=== PATIENT | female | born 1960 | race Caucasian/White ===

== ENCOUNTER 2018-04-01 19:15 | Emergency (ER) | payer OTHER ==
[2018-04-01 19:41] VITALS: BP 95/60
--- NOTE | 2018-04-01 20:28 | UC ---
Lower Extremity/Ankle HPI - HPI Summary HPI Summary: Patient is a 57-year-old female presenting to the with left knee pain 3 days. She denies any known injury. She states she is unable to flex fully, however denies any ecchymosis or swelling. Pain is worse with ambulation, better with rest, however still present. She states she feels as though the knee is pulling it is very tight. Endorses radiation of pain down the left lateral side of the lower leg. Pain is located both medially and laterally. - History of Current Complaint Hx Obtained From: Patient Hx Last Menstrual Period: 1995 ?: No Onset/Duration: Sudden Onset Severity Initially: Moderate Severity Currently: Moderate Pain Intensity: 6 Pain Scale Used: 0-10 Numeric Aggravating Factor(s): Standing, Ambulation Alleviating Factor(s): Rest, Elevation Able to Bear Weight: Yes - Risk Factors Gout Risk Factors: Age Over 40 DVT Risk Factors: Negative Septic Arthritis Risk Factor: Negative <Britta Lomeli - Last Filed: 04/01/18 21:18> <Carmen Franco - Last Filed: 04/01/18 21:23> - History of Current Complaint Chief Complaint: UCLowerExtremity Stated Complaint: KNEE PAIN Time Seen by Provider: 04/01/18 20:02 - Allergies/Home Medications Allergies/Adverse Reactions: Allergies Allergy/AdvReac Type Severity Reaction Status Date / Time No Known Allergies Allergy Verified 04/01/18 19:41 PMH/Surg Hx/FS Hx/Imm Hx Previously Healthy: Yes Other History Of: Negative For: HIV, Hepatitis B, Hepatitis C, Anticoagulant Therapy - Surgical History Surgical History: Yes Surgery Procedure, Year, and Place: appendectomy 1995. laproscopic uterine sx 2010 - Family History Known Family History: Positive: Cardiac Disease, Hypertension, Diabetes, Renal Disease - Social History Occupation: Employed Full-time Lives: With Family Alcohol Use: None Substance Use Type: None Smoking Status (MU): Light Every Day Tobacco Smoker - Immunization History Most Recent Influenza Vaccination: doesn't get <Britta Lomeli - Last Filed: 04/01/18 21:18> Review of Systems Constitutional: Negative Respiratory: Negative Cardiovascular: Negative Motor: Decreased ROM Neurovascular: Negative Musculoskeletal: Arthralgia - left knee pain Neurological: Negative Psychological: Negative Is Patient Immunocompromised?: No All Other Systems Reviewed And Are Negative: Yes <Britta Lomeli - Last Filed: 04/01/18 21:18> Physical Exam Triage Information Reviewed: Yes Appearance: Well-Appearing, No Pain Distress, Well-Nourished Vital Signs: Initial Vital Signs Temp 98.5 F 04/01/18 19:33 Pulse 64 04/01/18 19:33 Resp 16 04/01/18 19:33 BP 95/60 04/01/18 19:33 Pulse Ox 98 04/01/18 19:33 Neck exam: Normal Neck: Positive: Supple, No Lymphadenopathy Respiratory Exam: Normal Respiratory: Positive: Chest non-tender, Lungs clear Cardiovascular Exam: Normal Cardiovascular: Positive: RRR Musculoskeletal: Positive: ROM Limited @ - flexin of the knee Neurological: Positive: Alert Psychological Exam: Normal Psychological: Positive: Normal Response To Family Skin Exam: Normal <Britta Lomeli - Last Filed: 04/01/18 21:18> Vital Signs: Initial Vital Signs Temp 98.5 F 04/01/18 19:33 Pulse 64 04/01/18 19:33 Resp 16 04/01/18 19:33 BP 95/60 04/01/18 19:33 Pulse Ox 98 04/01/18 19:33 <Carmen Franco - Last Filed: 04/01/18 21:23> Lower Extremity Course/Dx - Course Course Of Treatment: During the course of treatment, the patient's evaluated for left-sided knee pain. I discussed with the patient obtaining an x-ray, however due to no injury is unlikely to show anything acute or pathological. She continues requesting an x-ray at this time. She has been taking ibuprofen without relief. Has not used ice for relief. She states she walks several miles per day for her job however has never had this issue in the past. Xray shows no acute findings. This is likely patellar tendinitis and I have given her instructions for non weight bearing as much as possible, nsaids, elevation, ice. She will follow up with ortho if symptoms persist. - Differential Dx/Diagnosis Differential Diagnosis/HQI/PQRI: Sprain, Strain, Tendonitis Provider Diagnoses: Patellar tendinitis <Britta Lomeli - Last Filed: 04/01/18 21:18> Discharge - Sign-Out/Discharge Documenting (check all that apply): Discharge/Admit/Transfer - Billing Disposition and Condition Condition: STABLE Disposition: Home <Britta Lomeli - Last Filed: 04/01/18 21:18> - Billing Disposition and Condition Condition: STABLE Disposition: Home <Carmen Franco - Last Filed: 04/01/18 21:23> - Discharge Plan Condition: Stable Disposition: HOME Patient Education Materials: Knee Pain (ED), Patellar Tendinitis (ED) Referrals: No Primary Care Phys,NOPCP [Primary Care Provider] - Betzaida Weber MD [Medical Doctor] - Additional Instructions: Please follow up with orthopedics Ibuprofen 600mg three times daily Ice Elevation keep the area compressed Stay non weight bearing as much as possible Attestation Statement User Type: Provider - I was available for consult. This patient was seen by the EDUARD. The patient was not presented to, seen by, or examined by me. -Rober <Carmen Franco - Last Filed: 04/01/18 21:23>
--- NOTE | 2018-04-01 20:54 | RAD ---
Indication: Left knee pain. 4 views of left knee demonstrates no fracture. No joint effusion identified. IMPRESSION: No fracture of the left knee.
== END 2018-04-01 21:25 | disposition home or self-care (01) ==
LOC: UCEAST 19:15
DX: M76.52 Patellar tendinitis, left knee (principal)
CPT/HCPCS: 99211; G0463

== ENCOUNTER → 2019-06-14 08:17 | Day surgery (SDC) | payer OTHER ==
--- NOTE | 2019-06-07 09:16 | HP ---
PREOPERATIVE HISTORY AND PHYSICAL: DATE OF ADMISSION/PROPOSED PROCEDURE: 06/14/19 DATE OF OFFICE VISIT: 05/30/19 ATTENDING PHYSICIAN: Dr. Festus Kerns* (dictated by TJ Marx). SURGERY SCHEDULED: Left knee arthroscopy. CHIEF COMPLAINT: Medial left knee pain. HISTORY OF PRESENT ILLNESS: The patient is a 58-year-old female who works at the home [employer] business and at night at [employer] on a [employer] crew. The patient has had complaints of knee pain since last summer. It began to bother her much more significantly earlier this month. A MRI was done last summer that showed findings consistent with a medial meniscal tear. She was found to have a medial meniscal tear due to the increased symptoms, has now elected to proceed with left knee arthroscopy with Dr. Kerns, 06/14/19. PAST MEDICAL HISTORY: Significant for: 1. Prior history of anemia. 2. COPD. PAST SURGICAL HISTORY: 1. Appendectomy. 2. Wrist surgery in 2007. MEDICATIONS: 1. Ibuprofen 400 to 600 mg every 6 hours as needed. 2. Percocet 5/325 one p.o. q.4 hours p.r.n. pain. ALLERGIES: No known drug allergies. FAMILY HISTORY: Positive for diabetes in mother and grandmother. Mother with a history of cardiac disease and hypertension. Father with a history of prostate cancer which metastasized to bone cancer. SOCIAL HISTORY: The patient lives with a friend. 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 She smokes half a pack of cigarettes per day. She denies use of alcohol. She denies use of illicit drugs. REVIEW OF SYSTEMS: The patient denies recent loss of consciousness, lightheadedness. She occasionally has shortness of breath with exertion, especially on stairs. Denies palpitations, gastrointestinal or genitourinary problems. She denies a history of DVT, phlebitis, or pulmonary embolism. PHYSICAL EXAMINATION VITAL SIGNS: Her vitals show a height of 65 inches, weight 146, BP 128/68. GENERAL: She is alert and oriented x3, in no acute distress. Pleasant and cooperative, appropriate mood and affect. HEENT: PERRLA. EOMI. NECK: Supple. LUNGS: Clear to auscultation without wheeze. HEART: Regular rate and rhythm without murmur. ABDOMEN: Flat, soft, nondistended, nontender. Normoactive bowel sounds x4 quadrants. EXTREMITIES: Lower extremities, no open lesions or excoriations. No rash. The left knee reveals tenderness to palpation along the medial joint line. Range of motion from 0 to 130 degrees. Her calf is nontender and soft. Her sensation and circulation are intact distally. IMPRESSION: Medial meniscal tear, left knee. PLAN: The patient has failed conservative management over the last year. Her symptoms have become worse over the last several weeks, and she now elects to proceed with left knee arthroscopy for probable debridement, partial medial meniscectomy with Dr. Festus Kerns, 06/14/19, at [facility]. Risks and benefits of the procedure were fully discussed with the patient by Dr. Kerns today at the office visit, 05/30/19. She elects to proceed. She will follow up in roughly 10 to 14 days postoperatively. TJ ROBLEDO [id number]/[facility] #: [id number] [facility] STATE HOSPITALScarlett
[~2019-06-14 08:17] MED LIST: Acetaminophen TAB* 325 MG PO PRN; Buffered Lidocaine 1% SYRIN* 1 ML/SYRINGE INTRADERM ONE; Bupivacaine 0.5% W/EPI SDV* 10 ML VIAL INJ ONE; Dexamethasone IV* 4 MG/ML 1 ML (4 MG) ONE; EPHEDrine (Pressors)* 50 MG/ML VIAL ONE; HYDROcodone/ACETAMIN 5-325 MG* 1 TAB ONE; HYDROcodone/ACETAMIN 5-325 MG* 1 TAB PO PRN; HYDROmorphone INJ1* 1 MG/ML SYRINGE ONE; Ketorolac INJ* 30 MG/ML 1 ML VIAL ONE; Lactated Ringers 1000 ML Bag* 1,000 ML IV SCH; Lidocaine 2% PF * 5 ML VIAL ONE; Midazolam* 1 MG/ML 2 ML VIAL (2 MG) ONE; Naloxone* 0.4 MG/ML 1 ML VIAL IV PRN; Ondansetron INJ* 2 MG/ML VIAL ONE; Propofol* 10 MG/ML 20 ML BTL ONE; ceFAZolin 2 GM in NS PREMIX(*) 2 GM/100 ML BAG IVPB ONE; fentaNYL* 50 MCG/ML 2 ML VIAL (100 MCG VIAL) ONE
[2019-06-14] MEDS: HYDROmorphone INJ1* 1 MG/ML SYRINGE IV PRN ×4 (12:55→13:32)
[2019-06-14 14:55] VITALS: BP 109/59
--- NOTE | 2019-06-14 21:37 | OP ---
DATE OF OPERATION: 06/14/19 - SDS DATE OF : 58 SURGICAL CARE: Left knee. SURGEON: Festus Kerns MD ELECTRONIC INTELLIGENCE OFFICER: Yeimi Del Castillo, ophthalmic surgical assistant. ANESTHESIOLOGIST: Dr. Bourne. ANESTHESIA: LMA general. PRE-OP DIAGNOSIS: Left knee medial meniscal tear. POST-OP DIAGNOSES: Left knee medial meniscal tear and medial plica. OPERATIVE PROCEDURE: Left knee partial medial meniscectomy and resection of medial plica. COMPLICATIONS: There were no complications. DRAINS: There were no drains. Tourniquet control was utilized on the left leg. CONDITION: Stable to recovery room. INDICATION: Persistent pain and popping, feeling of something coming in and out of place, medial left knee. DESCRIPTION OF PROCEDURE: The patient was brought to the operating room and placed on the operating room table in a supine position. Following the administration of anesthetic, the left proximal thigh was wrapped with a tourniquet and the left leg was prepped from the tourniquet to the foot and then draped free and carefully sealed off with surgical care. The leg was also given a preliminary chlorhexidine prep in the knee region. After prepping, draping, and sealing off, we did our universal protocol time-out confirming Rosanna Johnsonxi and plan for left knee arthroscopic surgery. We all agreed and we proceeded. The left leg, ankle and foot was exsanguinated with a tourniquet. The thigh tourniquet elevated to 275 mmHg. The left knee was set up for the arthroscopic surgery with the arthroscope lateral to the patellar tendon, probe and operating instruments medial to the patellar tendon and an inflow catheter superomedial to the patella. The initial survey of the joint showed that the patellofemoral joint was essentially in satisfactory condition. Slight softening and yellowing of the cartilage on the medial facet where the MRI scan had shown some cartilage fissuring. The cartilage looked satisfactory. There was a medial plica just inferior to patella and going medially and I did resect this in the course of the surgical care. The medial and lateral gutters were clean. The ACL was intact. Lateral joint, lateral femoral condyle, lateral meniscus, lateral tibial plateau had slight wear, but no need for surgical care. The medial femoral condyle had loose cartilage in the weightbearing surface kind of diffusely. I did resect some of the flaps there that were very loose and the medial meniscus was torn up mid and posteriorly including flaps. They were popping in and out and visible when I was probing the meniscus, certainly consistent with her history. Once the pathology was evident, I proceeded with resection of the medial meniscus mid and posteriorly utilizing baskets and the shaver and care was taken to get all loose fragments going posteriorly and for the anterior transition anterior to the MCL. The shaver was put in from the anterolateral portal to finish the smoothing of that part of the meniscectomy. Care was taken not to injure adjacent cartilage surfaces during the surgical care and a final photograph was obtained. After the surgical care was complete, then the tourniquet was deflated and the knee was irrigated with another 4 to 6 L of saline, then emptied, then instilled with Marcaine 0.25% with epinephrine 30 mL and the skin portal was closed with interrupted 3-0 Surgipro. A dressing was done after washing and drying with Betadine-soaked sterile gauze, sterile Webril, cryotherapy cuff, ABD pads, and a 6-inch Gustavo bandage loosely applied. The patient was returned to the hospital stretcher and to the recovery room in stable and satisfactory condition, having tolerated the procedure very well. The prognosis is satisfactory. [id number]/[facility] #: [id number] [place]
== END | disposition home or self-care (01) ==
LOC: OR 08:17
PROVIDERS: ATTEND Orthopaedic Surgery
DX: S83.242A Other tear of medial meniscus, current injury, left knee, initial encounter (principal); M67.52 Plica syndrome, left knee; J44.9 Chronic obstructive pulmonary disease, unspecified; Z72.0 Tobacco use; X58.XXXA Exposure to other specified factors, initial encounter; Y92.9 Unspecified place or not applicable
CPT/HCPCS: J0690; J1100; J1170; J1885; J2250; J2405; J2704; J3010

== ENCOUNTER 2019-11-25 11:05 | Emergency (ER) | payer OTHER ==
[2019-11-25 11:28] VITALS: BP 88/55
[2019-11-25] MEDS ORDERED: Albuterol HFA INHALER* 8 gm MDI INH ONE (11:36)
--- NOTE | 2019-11-25 11:37 | UC ---
Respiratory Complaint HPI - HPI Summary HPI Summary: The patient is a 59-year-old female with a 48 hour history of fever chills, cough, chest tightness. She has had no nausea vomiting or diarrhea. She has had a history of bronchitis in the past. She has myalgias and headache. - History of Current Complaint Chief Complaint: UCGeneralIllness Stated Complaint: COUGH CHEST CONGESTION FEVER Time Seen by Provider: 11/25/19 11:24 Hx Obtained From: Patient Hx Last Menstrual Period: 1995 Onset/Duration: Gradual Onset, Lasting Hours - <48 Severity Initially: Mild Severity Currently: Moderate Pain Intensity: 3 Pain Scale Used: 0-10 Numeric Character: Cough: Nonproductive Aggravating Factors: Nothing Alleviating Factors: Nothing Associated Signs And Symptoms: Negative: Fever, Chills, Wheezing, Nasal Congestion, Hoarseness, Sinus Discomfort - Allergies/Home Medications Allergies/Adverse Reactions: Allergies Allergy/AdvReac Type Severity Reaction Status Date / Time No Known Allergies Allergy Verified 11/25/19 11:28 Home Medications: Home Medications Ibuprofen TAB* [Advil TAB*] 3 - 4 tab PO Q6HR PRN 06/08/16 [History Confirmed ] Oseltamivir CAP* [Tamiflu CAP*] 75 mg PO BID #10 cap 11/25/19 [Rx] PMH/Surg Hx/FS Hx/Imm Hx Previously Healthy: Yes Other History Of: Negative For: HIV, Hepatitis B, Hepatitis C, Anticoagulant Therapy - Surgical History Surgical History: Yes Surgery Procedure, Year, and Place: appendectomy 1995. laproscopic uterine sx 2010. LEFT WRIST-ARTERY/TENDON/NERVE REPAIR - Family History Known Family History: Positive: Cardiac Disease, Hypertension, Diabetes, Renal Disease - Social History Alcohol Use: None Substance Use Type: None Smoking Status (MU): Light Every Day Tobacco Smoker Amount Used/How Often: 3/4 PPD X 17 YEARS Have You Smoked in the Last Year: No - Immunization History Most Recent Influenza Vaccination: doesn't get Review of Systems All Other Systems Reviewed And Are Negative: Yes Constitutional: Positive: Fever, Chills, Fatigue Skin: Positive: Negative Eyes: Positive: Negative ENT: Positive: Nasal Discharge Respiratory: Positive: Cough Cardiovascular: Positive: Negative Gastrointestinal: Positive: Negative Genitourinary: Positive: Negative - And Motor: Positive: Negative Neurovascular: Positive: Negative Musculoskeletal: Positive: Negative Neurological/Mental Status: Positive: Negative Psychological: Positive: Negative Physical Exam Triage Information Reviewed: Yes Appearance: Well-Appearing, No Pain Distress, Well-Nourished Vital Signs: Initial Vital Signs Temp 97.8 F 11/25/19 11:24 Pulse 79 11/25/19 11:24 Resp 16 11/25/19 11:24 BP 88/55 11/25/19 11:24 Pulse Ox 100 11/25/19 11:24 Vital Signs Reviewed: Yes Eyes: Positive: Conjunctiva Clear ENT: Positive: Hearing grossly normal. Negative: Nasal congestion, Nasal drainage, Tonsillar swelling, Tonsillar exudate, Sinus tenderness, Uvula midline Dental Exam: Normal Neck: Positive: Supple, Nontender, No Lymphadenopathy Respiratory: Positive: No respiratory distress, No accessory muscle use, Other: - bronchospastic cough Cardiovascular: Positive: RRR, No Murmur Musculoskeletal: Positive: ROM Intact, No Edema Neurological: Positive: Alert Psychological Exam: Normal Skin Exam: Normal Diagnostics - Laboratory Lab Results: influenza A + Respiratory Course/Dx - Differential Dx/Diagnosis Provider Diagnosis: Influenza A Discharge ED - Sign-Out/Discharge Documenting (check all that apply): Patient Departure All imaging exams completed and their final reports reviewed: No Studies - Discharge Plan Condition: Stable Disposition: HOME Prescriptions: Oseltamivir CAP* [Tamiflu CAP*] 75 mg PO BID #10 cap Patient Education Materials: Influenza (ED), How to Use a Metered-Dose Inhaler and a Spacer (ED) Referrals: No Primary Care Phys,NOPCP [Primary Care Provider] - Additional Instructions: rest fluids tylenol or advil - Billing Disposition and Condition Condition: STABLE Disposition: Home
[2019-11-25 12:01] LABS: Influenza A Molecular POSITIVE (Negative)
== END 2019-11-25 12:15 | disposition home or self-care (01) ==
LOC: UCEAST 11:05
DX: J10.1 Influenza due to other identified influenza virus with other respiratory manifestations (principal); F17.210 Nicotine dependence, cigarettes, uncomplicated
CPT/HCPCS: 99213; A9270-GY; G0463